=== PATIENT | female | born 2005 ===

== ENCOUNTER 2023-08-18 20:50 | Emergency (ER) | payer MEDICAID ==
[2023-08-18 21:00] VITALS: BP 172/61; PULSE 88; RESP 16; TEMP 98.6; O2SAT 100
== END 2023-08-18 23:36 | disposition left against medical advice (07) ==
LOC: ER 20:51
DX: R00.2 Palpitations (principal); Z53.21 Procedure and treatment not carried out due to patient leaving prior to being seen by health care provider
CPT/HCPCS: 93005; 99281